=== PATIENT | male | born 1950 | race Caucasian/White ===

== ENCOUNTER → 2017-02-22 | Outpatient (CLI) | payer MEDICARE, OTHER ==
[~2017-02-22] MED LIST: AFRIN,GENASAL D15 ML BOTH NARES; AMLODIPINE BESYL5 MG PO; ATARAX,VISTARIL50 MG PO; BENTYL20 MG PO; BUPRENORPHINE HC2 MG SL; BUPRENORPHINE HC8 MG SL; BUPRENORPHINE PO; CATAPRES0.1 MG PO; COLACE50 MG PO; Cipro PO; Flagyl PO; GUAIFENESI100 MG/5 M PO; HYDROCHLOROTHIA25 MG PO; I-CAPS AREDS S1 EACH PO; IMODIUM A-D2 M1 PO; IMODIUM A-D2 MG PO; LEVOFLOXACIN750 MG PO; LOPRESSOR50 MG PO; LYRICA50 MG PO; METHADONE HCL40 MG PO; METOPROLOL SUCC50 MG PO; METOPROLOL TART25 MG PO; METOPROLOL TART50 MG PO; MOVANTIK25 MG PO; Miralax, Glycolax PO; NALTREXONE HCL50 MG PO; NICOTINE PATCH1 EAC1 TD; NICOTINE PATCH1 EAC2 TD; NORVASC5 MG PO; ONDANSETRON HCL4 MG PO; PERCOCET 5/31 TABLET PO; PHENADOZ25 MG PR; PREDNISONE10 MG PO; PRESERVISION A1 EAC2 PO; PROAIR HFA8.5 GM IH; Phenergan PO; Senokot,Sennagen PO; TOPROL XL50 MG PO; VANCOCIN 250 M250 MG PO; ZANTAC150 MG PO; Zofran PO
== END | disposition home or self-care (01) ==
LOC: CDC 10:50
DX: Z01.810 Encounter for preprocedural cardiovascular examination (principal); K80.20 Calculus of gallbladder without cholecystitis without obstruction; R94.31 Abnormal electrocardiogram [ECG] [EKG]
CPT/HCPCS: 93000

== ENCOUNTER 2017-02-28 08:29 | Day surgery (SDC) | payer OTHER ==
[~2017-02-28] VITALS: Ht 175.3 cm; Wt 127.2 kg
[2017-02-28] MEDS ORDERED: ALKA-SELTZER H1 EACH PO (08:52)
[2017-02-28 08:54] VITALS: BP 133/81
[2017-02-28 10:02] LABS: POINT-OF-CARE METER ID UU14174212
== END 2017-02-28 11:25 | disposition home or self-care (01) ==
LOC: SDC 08:29
PROVIDERS: Surgery
DX: K80.20 Calculus of gallbladder without cholecystitis without obstruction (principal); Z53.09 Procedure and treatment not carried out because of other contraindication; R73.9 Hyperglycemia, unspecified
CPT/HCPCS: 82948; J0690; J2405

== ENCOUNTER 2017-10-17 09:11 | Day surgery (SDC) | payer OTHER ==
[~2017-10-17] VITALS: Ht 175.3 cm; Wt 124.7 kg
[~2017-10-17 09:11] MED LIST changes: +ALKA-SELTZER H1 EACH PO; +AMARYL2 MG PO
[2017-10-17 09:50] VITALS: BP 131/82
[2017-10-17 12:25] VITALS: BP 124/71
[2017-10-17 12:50] VITALS: BP 129/60
== END 2017-10-17 13:05 | disposition home or self-care (01) ==
LOC: SDC 09:11
PROVIDERS: Internal Medicine
DX: E11.319 Type 2 diabetes mellitus with unspecified diabetic retinopathy without macular edema (principal); H35.342 Macular cyst, hole, or pseudohole, left eye; H33.312 Horseshoe tear of retina without detachment, left eye; K21.9 Gastro-esophageal reflux disease without esophagitis; I10 Essential (primary) hypertension; L40.9 Psoriasis, unspecified; Z79.84 Long term (current) use of oral hypoglycemic drugs
CPT/HCPCS: 82948; J0690; J2250; J3010; J3300; Q0175